=== PATIENT | female | born 1970 | race African-American/Black ===

== ENCOUNTER 2019-07-20 09:13 | Inpatient (IN) | payer OTHER ==
[~2019-07-20] VITALS: Ht 165.1 cm; Wt 99.8 kg
--- NOTE | 2019-07-20 | NUR ---
NURSE NOTES: PT COMPLAINED OF CHEST TIGHTNESS, NITROGLYCERIN 0.4MG Q5X3 PRN GIVEN. INFORMED DR. MACKAY. PT REPORTED RELIEF OF CHEST PAIN UPON REASSESSMENT. WILL CONTINUE TO MONITOR CLOSELY. Addendum: 07/21/19 at 0336 by Lenora Mayorga RN DISREGARD. WRONG TIME STAMP.
[2019-07-20 09:30] VITALS: BP 176/121
--- NOTE | 2019-07-20 09:30 | NUR ---
ED Nurse Note: Patient ambulated into the ER with a c/o SOB since last night. Pt stated she has a hx of asthma and she explained that she took an alkaseltzer last night. Placed on cardiac monitors. Patient is AAOx4, on room air. On Auscultation audible wheezing noted in bilateral lobes. O2 saturation 100% on room air. No accessory muscles being used noted.
--- NOTE | 2019-07-20 09:32 | NUR ---
ED Nurse Note: ERMD at bedside.
--- NOTE | 2019-07-20 09:35 | NUR ---
ED Nurse Note: Patient bp 176/121 with no reports of headache, dizziness, or n/v. Reported BP to ERMD.
[2019-07-20] MEDS ORDERED: Solu-MEDROL 125mg Inj IVP ONE (09:45)
[2019-07-20] MEDS: Ipratropium 0.02% Inh Soln 2.5ml UD HHN SCH ×2 (09:59→10:00)
[2019-07-20] MEDS: Albuterol ud Inhalation HHN SCH ×2 (09:59→10:00)
--- NOTE | 2019-07-20 10:05 | Emergency Room Report ---
History of Present Illness General Chief Complaint: Dyspnea/Respdistress Source: Patient Present Illness HPI 49-year-old female with history of asthma, hypertension and anxiety who presents with difficulty breathing for 1 day duration. She had a lot of difficulty bringing this morning. She did not take any medications today. She states her symptoms started after using [facility] yesterday for "generalized not feeling well". She received the pneumonia vaccination within the last 2 years. However she did not get her influenza vaccination this year. She denies any known fevers but notes subjective fever symptoms. She has an associated dry cough. She denies any chest pain. She has a history of hypertension where she takes her medications as needed for high blood pressure. She has not taken any medications for the last several weeks as her blood pressures been within normal limits. Patient has no prior smoking history. Allergies: Coded Allergies: ACETAMINOPHEN (Verified Allergy, Unknown, 07/20/19) HYDROCODONE (Verified Allergy, Unknown, 07/20/19) Patient History Last Menstrual Period: hysterectomy 08/2018 Now: No Nursing Documentation-[facility] Hx Asthma: Yes History Of Psychiatric Problem: Yes - Anxiety Review of Systems Constitutional: Reports: fever; Denies: chills Respiratory: Reports: cough, shortness of breath Cardiovascular: Denies: chest pain, palpitations Gastrointestinal: Denies: diarrhea, vomiting Genitourinary: Denies: hematuria, pain Musculoskeletal: Denies: joint swelling Skin: Denies: rash, lesions Neurological: Denies: headache, dizziness Physical Exam Vital Signs Date Time Temp Pulse Resp B/P (MAP) Pulse Ox O2 Delivery O2 Flow Rate FiO2 07/20/19 09:24 98.2 95 19 148/111 (123) 94 Room Air Sp02 EP Interpretation: reviewed General Appearance: well appearing, no apparent distress, non-toxic Head: normocephalic, atraumatic Eyes: bilateral eye normal inspection ENT: hearing grossly normal, EOM grossly intact, moist mucus membranes Neck: supple Respiratory: no accessory muscle use, respiratory distress - Mild, rhonchi, speaking full sentences, wheezing - Bilateral worse expiratory than inspiratory Cardiovascular #1: regular rate, rhythm, normal capillary refill Cardiovascular #2: 2+ radial (R), 2+ radial (L), 2+ femoral (R), 2+ femoral (L) , 2+ dorsalis pedis (R) Gastrointestinal: non tender, soft, no mass, non-distended Rectal: deferred Musculoskeletal: no lower extremity edema, other - Limited range of motion of right hip. Pain with movement of right hip. No deformity, no skin changes Neurologic: grossly normal Psychiatric: mood/affect normal Skin: warm/dry, normal turgor Medical Decision Making ER Course 49-year-old female with history of asthma, hypertension, anxiety. Complaining of shortness of breath associated with dry cough found to wheezing and mild respiratory distress. Also noted to have hypertension at this time Differential includes We will give steroids, nebulizer treatment. And placed on cardiac monitors as blood pressure is elevated and reevaluate Laboratory Tests Test 07/20/19 10:02 White Blood Count 8.6 K/UL (4.8-10.8) Red Blood Count 5.14 M/UL (4.20-5.40) Hemoglobin 14.4 G/DL (12.0-16.0) Hematocrit 44.1 % (37.0-47.0) Mean Corpuscular Volume 86 FL (80-99) Mean Corpuscular Hemoglobin 28.0 PG (27.0-31.0) Mean Corpuscular Hemoglobin Concent 32.6 G/DL (32.0-36.0) Red Cell Distribution Width 12.9 % (11.6-14.8) Platelet Count 189 K/UL (150-450) Mean Platelet Volume 7.2 FL (6.5-10.1) Neutrophils (%) (Auto) 65.8 % (45.0-75.0) Lymphocytes (%) (Auto) 17.9 % (20.0-45.0) L Monocytes (%) (Auto) 5.9 % (1.0-10.0) Eosinophils (%) (Auto) 9.2 % (0.0-3.0) H Basophils (%) (Auto) 1.3 % (0.0-2.0) Sodium Level 140 MMOL/L (136-145) Potassium Level 4.0 MMOL/L (3.5-5.1) Chloride Level 103 MMOL/L (98-107) Carbon Dioxide Level 28 MMOL/L (21-32) Anion Gap 9 mmol/L (5-15) Blood Urea Nitrogen 7 mg/dL (7-18) Creatinine 0.6 MG/DL (0.55-1.30) Estimate Glomerular Filtration Rate > 60 mL/min (>60) Glucose Level 95 MG/DL (74-106) Calcium Level 9.5 MG/DL (8.5-10.1) Total Bilirubin 0.5 MG/DL (0.2-1.0) Aspartate Amino Transferase (AST) 27 U/L (15-37) Alanine Aminotransferase (ALT) 24 U/L (12-78) Alkaline Phosphatase 84 U/L (46-116) Troponin I 0.000 ng/mL (0.000-0.056) Total Protein 7.7 G/DL (6.4-8.2) Albumin 3.7 G/DL (3.4-5.0) Globulin 4.0 g/dL Albumin/Globulin Ratio 0.9 (1.0-2.7) L Microbiology Date/Time Source Procedure Growth Status 07/20/19 10:02 Nasal Nares - Final Complete 07/20/19 10:02 Nasal Nares - Final Complete INFLUENZA A ANTIGEN Final INFLUENZAE A RESULT NEGATIVE CALLED TO AND READ BACK LUZ Willett RN INFLUENZA B ANTIGEN Final INFLUENZAE B RESULT NEGATIVE CALLED TO AND READ BACK LUZ Willett RN Lab Results Impression CBC within normal limits chemistry within normal limits- influenza testing negative EKG Diagnostic Results EKG Time: 10:21 EP Interpretation: Normal sinus rhythm mild left atrial enlargement Rate: normal - 88 Rhythm: NSR ST Segments: no acute changes Rhythm Strip Diag. Results Rhythm Strip Time: 11:00 EP Interpretation: yes Rate: 94 Rhythm: NSR Reevaluation Time: 12:45 Last Vital Signs Date Time Temp Pulse Resp B/P (MAP) Pulse Ox O2 Delivery O2 Flow Rate FiO2 07/20/19 09:24 98.2 95 19 148/111 (123) 94 Room Air Last Vital Signs Date Time Temp Pulse Resp B/P (MAP) Pulse Ox O2 Delivery O2 Flow Rate FiO2 07/20/19 12:02 88 18 100 Room Air 21 80 16 97 07/20/19 11:18 97.0 154/103 Reevaluation Impression Patient had multiple episodes of wheezing. Reports persistent chest tightness. Patient had a total of 5 nebulizers with improvement however still reported to be short of breath. Will admit for acute asthma exacerbation. Pending insurance approval [id number] accepted patient for asthma exacerbation. Patient agreeable with plan Disposition: ADMITTED INPATIENT Jese Gould M.D. Jul 20, 2019 10:05
[2019-07-20 10:46] LABS: BASOPHILS % (AUTO) 1.3 % (0.0-2.0); EOSINOPHILS % (AUTO) 9.2 % (0.0-3.0); HEMATOCRIT 44.1 % (37.0-47.0); HEMOGLOBIN 14.4 G/DL (12.0-16.0); LYMPHOCYTES % (AUTO) 17.9 % (20.0-45.0); MEAN CORPUSCULAR VOLUME 86 FL (80-99); MONOCYTES % (AUTO) 5.9 % (1.0-10.0); NEUTROPHILS % (AUTO) 65.8 % (45.0-75.0); PLATELET COUNT 189 K/UL (150-450); RED BLOOD COUNT 5.14 M/UL (4.20-5.40); RED CELL DISTRIBUTION WIDTH 12.9 % (11.6-14.8); WHITE BLOOD COUNT 8.6 K/UL (4.8-10.8)
[2019-07-20 11:01] LABS: ANION GAP 9 mmol/L (5-15); BLOOD UREA NITROGEN 7 mg/dL (7-18); CALCIUM 9.5 MG/DL (8.5-10.1); CARBON DIOXIDE 28 MMOL/L (21-32); CHLORIDE 103 MMOL/L (98-107); CREATININE 0.6 MG/DL (0.55-1.30); SODIUM 140 MMOL/L (136-145)
[2019-07-20 11:05] LABS: ALANINE AMINOTRANSFERASE 24 U/L (12-78); ALBUMIN 3.7 G/DL (3.4-5.0); ALBUMIN/GLOBULIN RATIO 0.9 (1.0-2.7); ALKALINE PHOSPHATASE 84 U/L (46-116); ASPARTATE AMINO TRANSFERASE 27 U/L (15-37); BILIRUBIN,TOTAL 0.5 MG/DL (0.2-1.0)
[2019-07-20 11:18] VITALS: BP 154/103
[2019-07-20] MEDS ORDERED: Acetylcysteine 20% Soln 4ml HHN ONE (11:45)
[2019-07-20] MEDS ORDERED: Albuterol ud Inhalation HHN ONE (11:45)
--- NOTE | 2019-07-20 11:57 | Diagnostic Imaging Report ---
EXAM: XR Chest, 2 Views CLINICAL HISTORY: SOB TECHNIQUE: Frontal and lateral views of the chest. COMPARISON: No relevant prior studies available. FINDINGS: Lungs: Unremarkable. No consolidation. Pleural space: Elevated left hemidiaphragm. No pleural effusion. No pneumothorax. Heart: Unremarkable. No cardiomegaly. Mediastinum: Unremarkable. Bones/joints: Unremarkable. IMPRESSION: No evidence of acute pulmonary disease.
--- NOTE | 2019-07-20 13:05 | NUR ---
ED Nurse Note: UA SENT TO LAB
[2019-07-20 13:38] VITALS: BP 156/125
[2019-07-20] MEDS ORDERED: cloNIDine 0.2mg Tab ORAL ONE (13:45)
[2019-07-20] MEDS ORDERED: UNOBMED (13:48)
--- NOTE | 2019-07-20 13:48 | NUR ---
ED Nurse Note: patient does not recall the name of the medication she takes.
--- NOTE | 2019-07-20 15:15 | NUR ---
ED Nurse Note: Called 4 east to give report to recieving nurse MANJIT Ricks for continuity of care.
--- NOTE | 2019-07-20 15:30 | NUR ---
ED Nurse Note: Transfered patient via wheelchair. Endorsed to MANJIT Ricks patient belonging list and reviewed patient belonging list with patient and Donovan RN. Pt aox4, and on room air, respirations are even and unlabored, no accessory muscles usage noted.
--- NOTE | 2019-07-20 15:35 | NUR ---
NURSE NOTES: Received report from emergency department RN Stephanie. Patient was brought to unit via wheelchair. Patient able to transfer to bed with minimal assistance. Alert and oriented x 4. Personal belongs list was reviewed with patient and ED nurse Stephanie. Patient's belongings inside bedside night stand. black cell phone with black chemical processing supervisor at bedside with patient. 20 g IV patent in right hand. No signs of edema, erythema, or infiltration. Auditory wheezing noted bilaterally upon inhale and exhale. oxygen at 98 percent on room air. Patient complains of chest pain 9 / 10 and tightness in chest with inhale and exhale. Heart rate of 114 BPM noted upon apical auscultation. blood pressure of 158/102. Patient has history of hypertension and takes medication. Patients skin is dry, in tact, no open areas. Doctor Dilan ly. Orientation given about hospital and unit. Educated patient on use of call light. All personal belongings and call light in reach. Bed in lowest position and locked. Will continue to monitor.
[2019-07-20 15:55] VITALS: BP 154/102
--- NOTE | 2019-07-20 16:00 | NUR ---
NURSE NOTES: RN contacted to Dr. Kong for admission orders but Dr. Kong said to call Dr. Cardoza. Rn paged Dr. Cardoza.
--- NOTE | 2019-07-20 17:25 | NUR ---
NURSE NOTES: Dr. Cardoza put admission orders but no pain meds. RN paged Dr. Cardoza.
[2019-07-20] MEDS ORDERED: Promethazine/Codeine 5ml UD ORAL PRN (17:30)
[2019-07-20] MEDS ORDERED: LORazepam Inj 2mg/ml 1ml IV PRN (17:30)
[2019-07-20] MEDS: Solu-MEDROL 125mg Inj IV SCH ×2 (18:17→23:34)
[2019-07-20] MEDS: dilTIAZem HCl CD 120mg cap ORAL SCH (18:26)
--- NOTE | 2019-07-20 18:27 | NUR ---
NURSE NOTES: There is no EKG result from ER, Patient was seen by Dr. John who covers for Dr. Rogel. She ordered EKG. RT dept. was notified.
--- NOTE | 2019-07-20 19:32 | NUR ---
HAND-OFF: Report given to Lenora and endorsed to change her room if possible per patient request and follow up with doctor for pain meds.
[2019-07-20 20:00] VITALS: BP 149/110
--- NOTE | 2019-07-20 20:13 | NUR ---
NURSE NOTES: RECEIVED PT FROM MANJIT BRUNNER. PT IS AWAKE, AAOX4, ON ROOM AIR, C/O GENERALIZED PAIN. NO ACUTE RESPIRATORY DISTRESS NOTED. INFORMED FOR PAIN MEDICATION AND RECEIVED ORDERS. IV ON RIGHT HAND 20G IS INTACT AND PATENT. BED IS LOCKED AND LOW, BED ALARMS ACTIVE, SIDE RAILS UP X2 AND CALL LIGHT IS WITHIN REACH. WILL CONTINUE TO MONITOR.
[2019-07-20] MEDS: Theophylline ER 100mg ORAL SCH (21:23)
[2019-07-20] MEDS: Zoysn 3.37gm in NS 100ML IVPB SCH (21:24)
[2019-07-20] MEDS: Heparin 5000 units/ml inj SUBQ SCH (21:26)
[2019-07-20] MEDS ORDERED: Piperacillin/Tazobactam 2.25 GM in D5W 55 ML IV SCH (22:00)
[2019-07-20] MEDS: Albuterol/Ipratropium 3ml neb HHN PRN (22:31)
[2019-07-20] MEDS: Nitroglycerin Subl 0.4mg tab SL PRN ×3 (23:35→23:52)
[2019-07-21] VITALS (8 sets, daily range): BP systolic 133–155; BP diastolic 88–107
--- NOTE | 2019-07-21 | NUR ---
NURSE NOTES: PT COMPLAINED OF CHEST TIGHTNESS, NITROGLYCERIN 0.4MG Q5X3 PRN GIVEN. INFORMED DR. MACKAY. PT REPORTED RELIEF OF CHEST PAIN UPON REASSESSMENT. WILL CONTINUE TO MONITOR CLOSELY.
--- NOTE | 2019-07-21 03:00 | Consultation ---
DATE OF CONSULTATION: 07/20/2019 CARDIOLOGY CONSULTATION This consult is done as a coverage for Dr. Gustavo Rogel. CONSULTING PHYSICIAN: Tamia John M.D. REFERRING PHYSICIAN: Kofi Oliver M.D. HISTORY OF PRESENT ILLNESS: History has taken from the patient. The patient is a very pleasant 49-year-old female who came with COPD exacerbation. The patient has a history of asthma and since yesterday, she started feeling not very good, but she wanted to avoid coming to the hospital, so she took her inhalers. Unfortunately, it creates with worse shortness of breath. She denies any chest pain, orthopnea, or syncope. She has a history of hypertension. She does not remember her medications for blood pressure, but upon prompting, she remembers Lotensin and probably hydrochlorothiazide. PAST SURGICAL HISTORY: Remarkable for cholecystectomy, hysterectomy, and three back surgeries. HABITS: She denies smoking cigarettes. She only smokes marijuana occasionally. She denies any illicit drug abuse. ALLERGIES: She is allergic to acetaminophen and hydrocodone. MEDICATIONS: The rest of her medications, which she is taking at home were reviewed and reconciled. Her coronary risk factors include hypertension and she is not sure about her hyperlipidemia, whether she has elevated lipids or not. REVIEW OF SYSTEMS: From cardiac standpoint is negative and she denies any cardiac history and she did not take any of her medications today. PHYSICAL EXAMINATION: VITAL SIGNS: Blood pressure is 162/112; heart rate is from 100 to 90; on room air, oxygen saturation is 100%; and she is afebrile. HEENT: PERRLA. EOMI. NECK: Supple. Jugular venous pressure is not elevated. She has normal carotid upstroke. There is no thyromegaly. LUNGS: She has wheezing bilaterally with some prolonged expiration, especially posteriorly. HEART: Regular with loud A2. BREASTS: No masses. ABDOMEN: Soft. No hepatosplenomegaly. There is well-healed abdominal scars post surgery. EXTREMITIES: Lower extremities, distal pulses palpable. There is no edema. NEUROLOGICAL: She appears to be intact. LABORATORY AND DIAGNOSTIC DATA: The EKG is being in process. Chest x-ray was unremarkable. Her laboratory data also was reviewed and was unremarkable. IMPRESSION AND RECOMMENDATION: The patient is hypertensive. We are going to try to restart her on her home medications plus we are going to give her something p.r.n. I am going to follow her EKG and I think that she does not need any additional cardiac workup at this point. Thank you very much for your consultation. Tamia John M.D. DR: NINA JOB#: [id number] CC: [place]
[2019-07-21] MEDS: Albuterol/Ipratropium 3ml neb HHN PRN ×5 (03:32→21:06)
[2019-07-21] MEDS: Zoysn 3.37gm in NS 100ML IVPB SCH ×3 (06:41→21:28)
[2019-07-21] MEDS: Solu-MEDROL 125mg Inj IV SCH ×4 (06:42→23:40)
--- NOTE | 2019-07-21 07:30 | NUR ---
HAND-OFF: Report given to MANJIT BRUNNER.
--- NOTE | 2019-07-21 07:30 | NUR ---
NURSE NOTES: Received report from Lenora RN. Patient awake alert and oriented x 4. Sitting in Fowlers position in bed eating breakfast. Wheezing noted bilaterally in lungs. Patient denies chest pain at this time,and states that chest tightness is "better". Mild headache at this time, but no other complaints. No pain medication requested at this time. Educated patient the need for a sputum sample if able to. Bed in lowest position, locked, and alarmed. Call light, bedside table, and personal belongings within reach. Will continue to follow plan of care.
[2019-07-21] MEDS: Theophylline ER 100mg ORAL SCH ×2 (08:20→21:23)
[2019-07-21] MEDS: dilTIAZem HCl CD 120mg cap ORAL SCH (08:21)
[2019-07-21] MEDS: Heparin 5000 units/ml inj SUBQ SCH ×2 (08:25→21:28)
[2019-07-21] MEDS ORDERED: Acetylcysteine 20% Soln 4ml HHN PRN (08:30)
[2019-07-21] MEDS: Acetylcysteine 20% Soln 4ml HHN PRN ×3 (10:50→21:06)
--- NOTE | 2019-07-21 15:15 | History and Physical Report ---
DATE OF ADMISSION: 07/20/2019 TIME SEEN: 8 a.m. CONSULTANTS: 1. Nicolas Cardoza M.D. 2. Gustavo Rogel M.D. 3. Alden Perrin M.D. CHIEF COMPLAINT: 1. Shortness of breath. 2. Asthma exacerbation. 3. Hypertensive urgency. 4. Renal failure. BRIEF HISTORY: This is a 49-year-old female, who lives at home, experienced one day of increased shortness of breath, started wheezing, came to [place] last night, diagnosed with asthma exacerbation, hypertensive urgency, renal failure, and admitted to medical floor for further treatment. Currently, calm in bed, slight wheezing, and slight short of breath. No complaint otherwise. REVIEW OF SYSTEMS: No chest pain. Slight short of breath. No nausea, vomiting, or diarrhea. PAST MEDICAL HISTORY: Includes hypertension, renal failure, history of DVT, asthma, and anxiety. PAST SURGICAL HISTORY: Back surgery, gallbladder, hysterectomy, and right Achilles tendon. MEDICATIONS: Include Mucomyst, Zosyn, captopril, theophylline, ibuprofen, benazepril, diltiazem, methylprednisolone, lorazepam, and Zofran. . ALLERGIES: Tylenol and Vicodin. SOCIAL HISTORY: No smoking. No alcohol. Positive marijuana use. PHYSICAL EXAMINATION: GENERAL: Calm in bed, oriented x3, slight short of breath. VITAL SIGNS: Temperature 97 degrees, pulse 91, respirations 16, and blood pressure 152/106. CARDIOVASCULAR: No murmurs. LUNGS: Poor exchange, wheezing bilaterally. ABDOMEN: Bowel sounds positive. Nontender. Nondistended. EXTREMITIES: Show no cyanosis, clubbing, or edema. NEUROLOGIC: The patient moves all extremities, slightly weak. LABORATORY AND DIAGNOSTIC DATA: Laboratories show CBC is normal. BMP show troponin 0.00, otherwise normal. Urinalysis, urine HCG is negative. Chemistry, BUN and creatinine is fine. PLAN: 1. O2 pulmonary treatment. 2. Blood pressure control. 3. Nephrology followup. 4. Dietary followup. 5. PT and dietary evaluation. 6. CBC and BMP in the morning. Ramon Kong D.O. DR: Marce JOB#: [id number] CC:
--- NOTE | 2019-07-21 18:04 | Cardiology Progress Note ---
Assessment/Plan Assessment/Plan her BP is better controlled reviewed her ECG, unremarkable Subjective Subjective The patient feels better, has cough, but less wheezing Objective Last 24 Hour Vital Signs Date Time Temp Pulse Resp B/P (MAP) Pulse Ox O2 Delivery O2 Flow Rate FiO2 07/21/19 16:00 97.1 91 19 155/97 (116) 97 07/21/19 14:37 78 18 100 Room Air 21 74 18 97 07/21/19 12:00 98.3 99 19 146/97 (113) 95 07/21/19 10:52 84 18 100 Room Air 21 80 18 97 07/21/19 09:00 Room Air 96.0 07/21/19 08:21 91 152/106 07/21/19 08:21 152/106 07/21/19 08:00 98.1 91 18 152/106 (121) 93 07/21/19 07:54 82 18 100 Room Air 21 77 16 96 07/21/19 04:00 97.0 83 22 140/88 (105) 100 07/21/19 03:43 84 18 100 Room Air 21 79 18 99 07/21/19 01:47 139/97 (111) 07/21/19 00:00 97.0 91 20 144/107 (119) 96 07/20/19 23:52 149/110 07/20/19 23:43 149/110 07/20/19 23:35 149/110 07/20/19 22:35 85 18 100 Room Air 21 81 18 98 07/20/19 21:00 Room Air 96.0 07/20/19 20:00 97.3 97 20 149/110 (123) 100 07/20/19 18:26 93 162/112 07/20/19 18:25 162/112 General Appearance: no apparent distress EENT: PERRL/EOMI Neck: no JVD Rhythm: NSR Cardiovascular: normal rate Respiratory/Chest: expiratory wheezing Abdomen: soft Extremities: moderate edema Intake and Output 07/20/19 07/21/19 19:00 07:00 Intake Total 120 ml 110.0 ml Balance 120 ml 110.0 ml Intake Oral 120 ml IV Total 110.0 ml # Voids 1 Microbiology Date/Time Source Procedure Growth Status 07/20/19 10:02 Nasal Nares - Final Complete 07/20/19 10:02 Nasal Nares - Final Complete Tamia John MD Jul 21, 2019 18:04
--- NOTE | 2019-07-21 19:20 | NUR ---
HAND-OFF: Report given to Shayne SARAVIA.
--- NOTE | 2019-07-21 19:23 | NUR ---
NURSE NOTES: Received patient in bed. A/O x4. Patient denies pain att his time. On room air. No respiratory distress noted. IV site in the Left hand noted with dressing intact and no redness or swelling. Bed at the lowest position. Call light within reach.
--- NOTE | 2019-07-21 21:31 | Pulmonology Progress Note ---
Assessment/Plan Problems: (1) athma exacerbation (2) HTN (hypertension) Assessment/Plan respiratory treatment check sputum check labs steroids Subjective Interval Events: less short of breath Allergies: Coded Allergies: ACETAMINOPHEN (Verified Allergy, Unknown, 07/20/19) HYDROCODONE (Verified Allergy, Unknown, 07/20/19) Objective Last 24 Hour Vital Signs Date Time Temp Pulse Resp B/P (MAP) Pulse Ox O2 Delivery O2 Flow Rate FiO2 07/21/19 21:06 76 18 100 Room Air 21 71 18 98 07/21/19 16:00 97.1 91 19 155/97 (116) 97 07/21/19 14:37 78 18 100 Room Air 21 74 18 97 07/21/19 12:00 98.3 99 19 146/97 (113) 95 07/21/19 10:52 84 18 100 Room Air 21 80 18 97 07/21/19 09:00 Room Air 96.0 07/21/19 08:21 91 152/106 07/21/19 08:21 152/106 07/21/19 08:00 98.1 91 18 152/106 (121) 93 07/21/19 07:54 82 18 100 Room Air 21 77 16 96 07/21/19 04:00 97.0 83 22 140/88 (105) 100 07/21/19 03:43 84 18 100 Room Air 21 79 18 99 07/21/19 01:47 139/97 (111) 07/21/19 00:00 97.0 91 20 144/107 (119) 96 07/20/19 23:52 149/110 07/20/19 23:43 149/110 07/20/19 23:35 149/110 07/20/19 22:35 85 18 100 Room Air 21 81 18 98 Intake and Output 07/20/19 07/21/19 19:00 07:00 Intake Total 120 ml 110.0 ml Balance 120 ml 110.0 ml Intake Oral 120 ml IV Total 110.0 ml # Voids 1 General Appearance: WD/WN HEENT: normocephalic, anicteric Respiratory/Chest: chest wall non-tender, lungs clear Breasts: no masses Cardiovascular: normal rate, regularly irregular Abdomen: normal bowel sounds, no organomegaly, non distended, no scars Extremities: no cyanosis Skin: no rash, no lesions Microbiology Date/Time Source Procedure Growth Status 07/20/19 10:02 Nasal Nares - Final Complete 07/20/19 10:02 Nasal Nares - Final Complete Current Medications Medications (Trade) Dose Ordered Sig/Sylvie Route PRN Reason Start Time Stop Time Status Last Admin Dose Admin Acetylcysteine (Mucomyst) 200 mg Q6H PRN HHN For Cough 07/21/19 08:45 08/20/19 08:29 07/21/19 21:06 Albuterol/ Ipratropium (Albuterol/ Ipratropium) 3 ml Q4H PRN HHN dyspnea 07/20/19 17:30 07/25/19 17:29 07/21/19 21:06 Benazepril HCl (Lotensin) 40 mg DAILY ORAL 07/20/19 18:15 08/19/19 18:14 07/21/19 08:21 Captopril (Capoten) 25 mg Q8H PRN ORAL SBP above 150 07/20/19 22:00 08/19/19 21:59 Dextrose (Dextrose 50%) 25 ml Q30M PRN IV Hypoglycemia 07/20/19 17:30 08/19/19 17:29 Dextrose (Dextrose 50%) 50 ml Q30M PRN IV Hypoglycemia 07/20/19 17:30 08/19/19 17:29 Diltiazem HCl (Cardizem CD) 120 mg DAILY ORAL 07/20/19 18:15 08/19/19 18:14 07/21/19 08:21 Heparin Sodium (Porcine) (Heparin 5000 units/ml) 5,000 units EVERY 12 HOURS SUBQ 07/20/19 21:00 08/19/19 20:59 07/21/19 21:28 Ibuprofen (Advil) 400 mg Q6H PRN ORAL For Pain 07/20/19 20:15 08/19/19 20:14 Lorazepam (Ativan 2mg/ml 1ml) 0.5 mg Q4H PRN IV For Anxiety 07/20/19 17:30 07/27/19 17:29 Methylprednisolone Sodium Succinate (Solu-MEDROL) 60 mg EVERY 6 HOURS IV 07/20/19 18:00 08/19/19 17:59 07/21/19 17:42 Nitroglycerin (Ntg) 0.4 mg Q5M X 3 DOSES PRN SL Prn Chest Pain 07/20/19 17:30 08/19/19 17:29 07/20/19 23:52 Ondansetron HCl (Zofran) 4 mg Q6H PRN IVP Nausea & Vomiting 07/20/19 17:30 08/19/19 17:29 Piperacillin Sod/ Tazobactam Sod 3.375 gm/Sodium Chloride 110 ml @ 27.5 mls/hr EVERY 8 HOURS IVPB 07/20/19 22:00 07/25/19 21:59 07/21/19 21:28 Promethazine HCl/ Codeine (Phenergan with Codeine) 5 ml Q6H PRN ORAL cough 07/20/19 17:30 08/19/19 17:29 Temazepam (Restoril) 15 mg HSPRN PRN ORAL Insomnia 07/20/19 17:30 07/27/19 17:29 Theophylline (Bam-Dur) 100 mg EVERY 12 HOURS ORAL 07/20/19 21:00 08/19/19 20:59 07/21/19 21:23 Nicolas Cardoza MD Jul 21, 2019 21:31
[2019-07-22] VITALS: BP 165/97
[2019-07-22] MEDS: Captopril 25mg tab ORAL PRN ×2 (00:20→09:34)
[2019-07-22] MEDS: Albuterol/Ipratropium 3ml neb HHN PRN ×4 (01:30→13:53)
[2019-07-22] MEDS: Acetylcysteine 20% Soln 4ml HHN PRN ×3 (02:39→13:53)
[2019-07-22 04:00] VITALS: BP 131/88
[2019-07-22] MEDS: Solu-MEDROL 125mg Inj IV SCH ×4 (05:23→23:29)
[2019-07-22] MEDS: Zoysn 3.37gm in NS 100ML IVPB SCH (05:24)
[2019-07-22 06:35] LABS: MEAN CORPUSCULAR VOLUME 86 FL (80-99); PLATELET COUNT 207 K/UL (150-450); RED BLOOD COUNT 5.02 M/UL (4.20-5.40); RED CELL DISTRIBUTION WIDTH 13.5 % (11.6-14.8)
[2019-07-22 07:07] LABS: ANION GAP 11 mmol/L (5-15); BLOOD UREA NITROGEN 15 mg/dL (7-18); CALCIUM 8.7 MG/DL (8.5-10.1); CARBON DIOXIDE 25 MMOL/L (21-32); CHLORIDE 104 MMOL/L (98-107); CREATININE 1.1 MG/DL (0.55-1.30); POTASSIUM 3.7 MMOL/L (3.5-5.1); SODIUM 140 MMOL/L (136-145)
--- NOTE | 2019-07-22 07:19 | NUR ---
HAND-OFF: Report given to Bibi SARAVIA.
--- NOTE | 2019-07-22 07:30 | NUR ---
NURSE NOTES: Received pt awake and alert on the bed is eating breakfast. pt is in RA, no SOB or acute respiratory distress noted. pt has intact iv access LFA 22G SL and RH 24G SL. All needs attended, bed is locked and is in the lowest position, call light within easy reach. will continue to monitor.
[2019-07-22 07:56] LABS: WHITE BLOOD COUNT 23.5 K/UL (4.8-10.8)
[2019-07-22 08:00] VITALS: BP 160/97
--- NOTE | 2019-07-22 08:08 | NUR ---
NURSE NOTES: Dr MACKAY notified regarding WBC 23.5, he called back and stated Dr POON and Dr BERNARD notified by Dr MACKAY, Dr POON called back and stated he will F/U, no new order to RN.
--- NOTE | 2019-07-22 09:10 | General Progress Note ---
Assessment/Plan Problem List: (1) HTN (hypertension) ICD Codes: I10 - Essential (primary) hypertension SNOMED: 09233014 (2) Dyspnea ICD Codes: R06.00 - Dyspnea, unspecified SNOMED: 581911388 (3) athma exacerbation Status: unchanged Assessment/Plan: oe pulm tx bp control cbc bmp am Subjective Constitutional: Reports: weakness Respiratory: Reports: shortness of breath Allergies: Coded Allergies: ACETAMINOPHEN (Verified Allergy, Unknown, 07/20/19) HYDROCODONE (Verified Allergy, Unknown, 07/20/19) All Systems: reviewed and negative except above Subjective sleepy calm Objective Last 24 Hour Vital Signs Date Time Temp Pulse Resp B/P (MAP) Pulse Ox O2 Delivery O2 Flow Rate FiO2 07/22/19 04:00 97.4 92 19 131/88 (102) 97 07/22/19 02:40 79 18 100 Room Air 21 77 18 98 07/22/19 00:20 165/97 07/22/19 00:00 96.8 69 18 165/97 (119) 99 07/21/19 21:06 76 18 100 Room Air 21 71 18 98 07/21/19 21:00 Room Air 07/21/19 20:00 98.0 75 19 133/90 (104) 98 07/21/19 16:00 97.1 91 19 155/97 (116) 97 07/21/19 14:37 78 18 100 Room Air 21 74 18 97 07/21/19 12:00 98.3 99 19 146/97 (113) 95 07/21/19 10:52 84 18 100 Room Air 21 80 18 97 Intake and Output 07/21/19 07/22/19 19:00 07:00 Intake Total 1720.0 ml 1850.0 ml Balance 1720.0 ml 1850.0 ml Intake Oral 240 ml IV Total 220.0 ml 110.0 ml Other 1500 ml 1500 ml # Voids 2 Laboratory Tests 07/22/19 05:50: White Blood Count 23.5*H, Red Blood Count 5.02, Hemoglobin 14.0, Hematocrit 43.0 , Mean Corpuscular Volume 86, Mean Corpuscular Hemoglobin 27.9, Mean Corpuscular Hemoglobin Concent 32.6, Red Cell Distribution Width 13.5, Platelet Count 207, Mean Platelet Volume 6.4L, Neutrophils (%) (Auto) , Lymphocytes (%) ( Auto) , Monocytes (%) (Auto) , Eosinophils (%) (Auto) , Basophils (%) (Auto) , Neutrophils % (Manual) [Pending], Lymphocytes % (Manual) [Pending], Platelet Estimate [Pending], Platelet Morphology [Pending], Sodium Level 140, Potassium Level 3.7, Chloride Level 104, Carbon Dioxide Level 25, Anion Gap 11, Blood Urea Nitrogen 15, Creatinine 1.1, Estimat Glomerular Filtration Rate > 60, Glucose Level 200H, Calcium Level 8.7 Height (Feet): 5 Height (Inches): 5.00 Weight (Pounds): 220 General Appearance: alert EENT: normal ENT inspection Neck: normal alignment Cardiovascular: normal peripheral pulses, normal rate, regular rhythm Respiratory/Chest: expiratory wheezing, inspiratory wheezing Abdomen: normal bowel sounds, non tender, soft Extremities: normal inspection Edema: no edema noted Arm (L), no edema noted Arm (R), no edema noted Leg (L), no edema noted Leg (R), no edema noted Pedal (L), no edema noted Pedal (R), no edema noted Generalized Neurologic: responsive, motor weakness Skin: normal pigmentation, warm/dry Ramon Kong DO Jul 22, 2019 09:10
[2019-07-22] MEDS: Theophylline ER 100mg ORAL SCH ×2 (09:34→20:52)
[2019-07-22] MEDS: dilTIAZem HCl CD 120mg cap ORAL SCH (09:34)
[2019-07-22] MEDS: Heparin 5000 units/ml inj SUBQ SCH ×2 (09:36→20:54)
[2019-07-22 12:00] VITALS: BP 139/90
--- NOTE | 2019-07-22 12:47 | Consultation ---
History of Present Illness General Date patient seen: Jul 22, 2019 Chief Complaint: Dyspnea/Respdistress Present Illness HPI 49 y/o F with hx of COPD/asthma, HTN, DVT, s/p cholecystectomy, anxiety disorder , s/p hysterectomy 08/2018, back surgeries x3 presented to ED on 07/20 with worsening SOB and dry cough. Upon admission she was found to have hypertensive urgency and renal failure Denied chest pain, orthopnea, Allergies: Coded Allergies: ACETAMINOPHEN (Verified Allergy, Unknown, 07/20/19) HYDROCODONE (Verified Allergy, Unknown, 07/20/19) Medication History Miscellaneous Medications Unable to Obtain Medications (Unable To Obtain Meds), (Reported) Patient History Healthcare decision maker Resuscitation status Full Code Advanced Directive on File Patient History Narrative Pmhx: as above Shx: She denies smoking cigarettes. She only smokes marijuana occasionally. She denies any illicit drug abuse. Fhx: non contributory Review of Systems All Other Systems: negative except mentioned in HPI Physical Exam Physical Exam Narrative GENERAL: Calm in bed, oriented x3, slight short of breath. CARDIOVASCULAR: No murmurs. LUNGS: Poor exchange, wheezing bilaterally. ABDOMEN: Bowel sounds positive. Nontender. Nondistended. EXTREMITIES: Show no cyanosis, clubbing, or edema. NEUROLOGIC: The patient moves all extremities, slightly weak. Last 24 Hour Vital Signs Date Time Temp Pulse Resp B/P (MAP) Pulse Ox O2 Delivery O2 Flow Rate FiO2 07/22/19 12:00 97.8 77 16 139/90 (106) 98 07/22/19 09:34 160/97 07/22/19 09:34 78 160/97 07/22/19 09:34 160/97 07/22/19 09:05 78 18 100 Room Air 21 74 18 97 07/22/19 09:00 Room Air 07/22/19 08:00 97.8 82 17 160/97 (118) 100 07/22/19 04:00 97.4 92 19 131/88 (102) 97 07/22/19 02:40 79 18 100 Room Air 21 77 18 98 07/22/19 00:20 165/97 07/22/19 00:00 96.8 69 18 165/97 (119) 99 07/21/19 21:06 76 18 100 Room Air 21 71 18 98 07/21/19 21:00 Room Air 07/21/19 20:00 98.0 75 19 133/90 (104) 98 07/21/19 16:00 97.1 91 19 155/97 (116) 97 07/21/19 14:37 78 18 100 Room Air 21 74 18 97 Intake and Output 07/21/19 07/22/19 19:00 07:00 Intake Total 1720.0 ml 1850.0 ml Balance 1720.0 ml 1850.0 ml Intake Oral 240 ml IV Total 220.0 ml 110.0 ml Other 1500 ml 1500 ml # Voids 2 Laboratory Tests Test 07/22/19 05:50 White Blood Count 23.5 K/UL (4.8-10.8) *H Red Blood Count 5.02 M/UL (4.20-5.40) Hemoglobin 14.0 G/DL (12.0-16.0) Hematocrit 43.0 % (37.0-47.0) Mean Corpuscular Volume 86 FL (80-99) Mean Corpuscular Hemoglobin 27.9 PG (27.0-31.0) Mean Corpuscular Hemoglobin Concent 32.6 G/DL (32.0-36.0) Red Cell Distribution Width 13.5 % (11.6-14.8) Platelet Count 207 K/UL (150-450) Mean Platelet Volume 6.4 FL (6.5-10.1) L Neutrophils (%) (Auto) % (45.0-75.0) Lymphocytes (%) (Auto) % (20.0-45.0) Monocytes (%) (Auto) % (1.0-10.0) Eosinophils (%) (Auto) % (0.0-3.0) Basophils (%) (Auto) % (0.0-2.0) Differential Total Cells Counted 100 Neutrophils % (Manual) 91 % (45-75) H Lymphocytes % (Manual) 7 % (20-45) L Monocytes % (Manual) 2 % (1-10) Eosinophils % (Manual) 0 % (0-3) Basophils % (Manual) 0 % (0-2) Band Neutrophils 0 % (0-8) Platelet Estimate Adequate Platelet Morphology Normal Sodium Level 140 MMOL/L (136-145) Potassium Level 3.7 MMOL/L (3.5-5.1) Chloride Level 104 MMOL/L (98-107) Carbon Dioxide Level 25 MMOL/L (21-32) Anion Gap 11 mmol/L (5-15) Blood Urea Nitrogen 15 mg/dL (7-18) Creatinine 1.1 MG/DL (0.55-1.30) Estimat Glomerular Filtration Rate > 60 mL/min (>60) Glucose Level 200 MG/DL (74-106) H Calcium Level 8.7 MG/DL (8.5-10.1) Height (Feet): 5 Height (Inches): 5.00 Weight (Pounds): 220 Medications Current Medications Medications (Trade) Dose Ordered Sig/Sylvie Route PRN Reason Start Time Stop Time Status Last Admin Dose Admin Acetylcysteine (Mucomyst) 200 mg Q6H PRN HHN For Cough 07/21/19 08:45 08/20/19 08:29 07/22/19 09:05 Albuterol/ Ipratropium (Albuterol/ Ipratropium) 3 ml Q4H PRN HHN dyspnea 07/20/19 17:30 07/25/19 17:29 07/22/19 09:05 Benazepril HCl (Lotensin) 40 mg DAILY ORAL 07/20/19 18:15 08/19/19 18:14 07/22/19 09:34 Captopril (Capoten) 25 mg Q8H PRN ORAL SBP above 150 07/20/19 22:00 08/19/19 21:59 07/22/19 09:34 Dextrose (Dextrose 50%) 25 ml Q30M PRN IV Hypoglycemia 07/20/19 17:30 08/19/19 17:29 Dextrose (Dextrose 50%) 50 ml Q30M PRN IV Hypoglycemia 07/20/19 17:30 08/19/19 17:29 Diltiazem HCl (Cardizem CD) 120 mg DAILY ORAL 07/20/19 18:15 08/19/19 18:14 07/22/19 09:34 Heparin Sodium (Porcine) (Heparin 5000 units/ml) 5,000 units EVERY 12 HOURS SUBQ 07/20/19 21:00 08/19/19 20:59 07/22/19 09:36 Ibuprofen (Advil) 400 mg Q6H PRN ORAL For Pain 07/20/19 20:15 08/19/19 20:14 07/22/19 05:28 Lorazepam (Ativan 2mg/ml 1ml) 0.5 mg Q4H PRN IV For Anxiety 07/20/19 17:30 07/27/19 17:29 Methylprednisolone Sodium Succinate (Solu-MEDROL) 60 mg EVERY 6 HOURS IV 07/20/19 18:00 08/19/19 17:59 07/22/19 12:06 Nitroglycerin (Ntg) 0.4 mg Q5M X 3 DOSES PRN SL Prn Chest Pain 07/20/19 17:30 08/19/19 17:29 07/20/19 23:52 Ondansetron HCl (Zofran) 4 mg Q6H PRN IVP Nausea & Vomiting 07/20/19 17:30 08/19/19 17:29 Piperacillin Sod/ Tazobactam Sod 3.375 gm/Sodium Chloride 110 ml @ 27.5 mls/hr EVERY 8 HOURS IVPB 07/20/19 22:00 07/25/19 21:59 07/22/19 05:24 Promethazine HCl/ Codeine (Phenergan with Codeine) 5 ml Q6H PRN ORAL cough 07/20/19 17:30 08/19/19 17:29 Temazepam (Restoril) 15 mg HSPRN PRN ORAL Insomnia 07/20/19 17:30 07/27/19 17:29 07/22/19 00:20 Theophylline (Bam-Dur) 100 mg EVERY 12 HOURS ORAL 07/20/19 21:00 08/19/19 20:59 07/22/19 09:34 Assessment/Plan Assessment/Plan: Abx: Zosyn 07/20- Assessment: COPD/asthma exacerbation -CXR: No evidence of acute pulmonary disease. -influenza sc neg Afebrile Leukocytosis (not present on admission, now on high dose steroids) HTN DVT s/p cholecystectomy anxiety disorder s/p hysterectomy 08/2018 back surgeries x3 Plan: -Switch Zosyn #2 to PO Azithromycin for COPD exacerbation -f/u cx -Monitor CBC/CMP, temperatures Thank you for this consultation. Will continue to follow along with you. Discussed with Evi Carvalho M.D. Jul 22, 2019 12:47
[2019-07-22] MEDS ORDERED: Azithromycin 250mg tab ORAL SCH (13:00)
--- NOTE | 2019-07-22 15:17 | NUR ---
*-* INSURANCE *-* ALL AVAILABLE CLINICALS HAVE BEEN FAXED TO: [facility] REF# [id number] #[phone] FAX#[phone]
[2019-07-22 16:00] VITALS: BP 135/83
--- NOTE | 2019-07-22 19:18 | Cardiology Progress Note ---
Assessment/Plan Assessment/Plan htn copd exacerbation dvty hs increase cardizem cd to 180 on max acei dose increased wbc probably due to steriods Objective Last 24 Hour Vital Signs Date Time Temp Pulse Resp B/P (MAP) Pulse Ox O2 Delivery O2 Flow Rate FiO2 07/22/19 16:00 98.0 70 17 135/83 (100) 99 07/22/19 14:31 97.8 07/22/19 13:50 78 18 100 Room Air 21 76 18 97 07/22/19 12:00 97.8 77 16 139/90 (106) 98 07/22/19 09:34 160/97 07/22/19 09:34 78 160/97 07/22/19 09:34 160/97 07/22/19 09:05 78 18 100 Room Air 21 74 18 97 07/22/19 09:00 Room Air 07/22/19 08:00 97.8 82 17 160/97 (118) 100 07/22/19 04:00 97.4 92 19 131/88 (102) 97 07/22/19 02:40 79 18 100 Room Air 21 77 18 98 07/22/19 00:20 165/97 07/22/19 00:00 96.8 69 18 165/97 (119) 99 07/21/19 21:06 76 18 100 Room Air 21 71 18 98 07/21/19 21:00 Room Air 07/21/19 20:00 98.0 75 19 133/90 (104) 98 Intake and Output 07/21/19 07/22/19 19:00 07:00 Intake Total 1720.0 ml 1850.0 ml Balance 1720.0 ml 1850.0 ml Intake Oral 240 ml IV Total 220.0 ml 110.0 ml Other 1500 ml 1500 ml # Voids 2 Laboratory Tests Test 07/22/19 05:50 White Blood Count 23.5 K/UL (4.8-10.8) *H Red Blood Count 5.02 M/UL (4.20-5.40) Hemoglobin 14.0 G/DL (12.0-16.0) Hematocrit 43.0 % (37.0-47.0) Mean Corpuscular Volume 86 FL (80-99) Mean Corpuscular Hemoglobin 27.9 PG (27.0-31.0) Mean Corpuscular Hemoglobin Concent 32.6 G/DL (32.0-36.0) Red Cell Distribution Width 13.5 % (11.6-14.8) Platelet Count 207 K/UL (150-450) Mean Platelet Volume 6.4 FL (6.5-10.1) L Neutrophils (%) (Auto) % (45.0-75.0) Lymphocytes (%) (Auto) % (20.0-45.0) Monocytes (%) (Auto) % (1.0-10.0) Eosinophils (%) (Auto) % (0.0-3.0) Basophils (%) (Auto) % (0.0-2.0) Differential Total Cells Counted 100 Neutrophils % (Manual) 91 % (45-75) H Lymphocytes % (Manual) 7 % (20-45) L Monocytes % (Manual) 2 % (1-10) Eosinophils % (Manual) 0 % (0-3) Basophils % (Manual) 0 % (0-2) Band Neutrophils 0 % (0-8) Platelet Estimate Adequate Platelet Morphology Normal Sodium Level 140 MMOL/L (136-145) Potassium Level 3.7 MMOL/L (3.5-5.1) Chloride Level 104 MMOL/L (98-107) Carbon Dioxide Level 25 MMOL/L (21-32) Anion Gap 11 mmol/L (5-15) Blood Urea Nitrogen 15 mg/dL (7-18) Creatinine 1.1 MG/DL (0.55-1.30) Estimat Glomerular Filtration Rate > 60 mL/min (>60) Glucose Level 200 MG/DL (74-106) H Calcium Level 8.7 MG/DL (8.5-10.1) Microbiology Date/Time Source Procedure Growth Status 07/20/19 10:02 Nasal Nares - Final Complete 07/20/19 10:02 Nasal Nares - Final Complete Gustavo Rogel MD Jul 22, 2019 19:18
--- NOTE | 2019-07-22 19:23 | NUR ---
HAND-OFF: Report given to KELI SARAVIA. Pt is awake and stable.
--- NOTE | 2019-07-22 19:53 | NUR ---
NURSE NOTES: received pt in bed in semi-salmon's position in room air. no s/s of acute respiratory distress noted. no c/o chest pain. call light within reach. bed is the lowest position. will continue to provide plan of care.
[2019-07-22 20:00] VITALS: BP 144/94
[2019-07-23] VITALS: BP 135/94
[2019-07-23] MEDS: Albuterol/Ipratropium 3ml neb HHN PRN ×2 (00:02→09:52)
[2019-07-23 04:00] VITALS: BP 134/94
[2019-07-23] MEDS: Solu-MEDROL 125mg Inj IV SCH ×2 (05:29→12:04)
--- NOTE | 2019-07-23 06:35 | Consultation ---
History of Present Illness General Chief Complaint: Dyspnea/Respdistress Present Illness Allergies: Coded Allergies: ACETAMINOPHEN (Verified Allergy, Unknown, 07/20/19) HYDROCODONE (Verified Allergy, Unknown, 07/20/19) Medication History Miscellaneous Medications Unable to Obtain Medications (Unable To Obtain Meds), (Reported) Patient History Healthcare decision maker Resuscitation status Full Code Advanced Directive on File Physical Exam Last 24 Hour Vital Signs Date Time Temp Pulse Resp B/P (MAP) Pulse Ox O2 Delivery O2 Flow Rate FiO2 07/23/19 04:00 97.0 94 20 134/94 (107) 96 07/23/19 00:05 52 18 100 Room Air 21 47 18 99 07/23/19 00:00 97.1 76 18 135/94 (108) 98 07/22/19 21:00 Room Air 07/22/19 20:00 72 20 95 Room Air 21 07/22/19 20:00 97.3 79 18 144/94 (111) 98 07/22/19 16:00 98.0 70 17 135/83 (100) 99 07/22/19 14:31 97.8 07/22/19 13:50 78 18 100 Room Air 21 76 18 97 07/22/19 12:00 97.8 77 16 139/90 (106) 98 07/22/19 09:34 160/97 07/22/19 09:34 78 160/97 07/22/19 09:34 160/97 07/22/19 09:05 78 18 100 Room Air 21 74 18 97 07/22/19 09:00 Room Air 07/22/19 08:00 97.8 82 17 160/97 (118) 100 Intake and Output 07/22/19 07/23/19 18:59 06:59 Intake Total 1282.5 ml Balance 1282.5 ml Intake Oral 1200 ml IV Total 82.5 ml # Voids 2 1 Laboratory Tests Test 07/23/19 06:05 White Blood Count Pending Red Blood Count Pending Hemoglobin Pending Hematocrit Pending Mean Corpuscular Volume Pending Mean Corpuscular Hemoglobin Pending Mean Corpuscular Hemoglobin Concent Pending Red Cell Distribution Width Pending Platelet Count Pending Mean Platelet Volume Pending Neutrophils (%) (Auto) Pending Lymphocytes (%) (Auto) Pending Monocytes (%) (Auto) Pending Eosinophils (%) (Auto) Pending Basophils (%) (Auto) Pending Sodium Level Pending Potassium Level Pending Chloride Level Pending Carbon Dioxide Level Pending Blood Urea Nitrogen Pending Creatinine Pending Estimat Glomerular Filtration Rate Pending Glucose Level Pending Calcium Level Pending Height (Feet): 5 Height (Inches): 5.00 Weight (Pounds): 220 Medications Current Medications Medications (Trade) Dose Ordered Sig/Sylvie Route PRN Reason Start Time Stop Time Status Last Admin Dose Admin Acetylcysteine (Mucomyst) 200 mg Q6H PRN HHN For Cough 07/21/19 08:45 08/20/19 08:29 07/22/19 13:53 Albuterol/ Ipratropium (Albuterol/ Ipratropium) 3 ml Q4H PRN HHN dyspnea 07/20/19 17:30 07/25/19 17:29 07/23/19 00:02 Azithromycin (Zithromax) 250 mg DAILY ORAL 07/23/19 09:00 07/30/19 08:59 Benazepril HCl (Lotensin) 40 mg DAILY ORAL 07/20/19 18:15 08/19/19 18:14 07/22/19 09:34 Dextrose (Dextrose 50%) 25 ml Q30M PRN IV Hypoglycemia 07/20/19 17:30 08/19/19 17:29 Dextrose (Dextrose 50%) 50 ml Q30M PRN IV Hypoglycemia 07/20/19 17:30 08/19/19 17:29 Diltiazem HCl (Cardizem CD) 180 mg DAILY ORAL 07/23/19 09:00 08/22/19 08:59 Heparin Sodium (Porcine) (Heparin 5000 units/ml) 5,000 units EVERY 12 HOURS SUBQ 07/20/19 21:00 08/19/19 20:59 07/22/19 20:54 Ibuprofen (Advil) 400 mg Q6H PRN ORAL For Pain 07/20/19 20:15 08/19/19 20:14 07/22/19 20:59 Lorazepam (Ativan 2mg/ml 1ml) 0.5 mg Q4H PRN IV For Anxiety 07/20/19 17:30 07/27/19 17:29 Methylprednisolone Sodium Succinate (Solu-MEDROL) 60 mg EVERY 6 HOURS IV 07/20/19 18:00 08/19/19 17:59 07/23/19 05:29 Nitroglycerin (Ntg) 0.4 mg Q5M X 3 DOSES PRN SL Prn Chest Pain 07/20/19 17:30 08/19/19 17:29 07/20/19 23:52 Ondansetron HCl (Zofran) 4 mg Q6H PRN IVP Nausea & Vomiting 07/20/19 17:30 08/19/19 17:29 Promethazine HCl/ Codeine (Phenergan with Codeine) 5 ml Q6H PRN ORAL cough 07/20/19 17:30 08/19/19 17:29 Temazepam (Restoril) 15 mg HSPRN PRN ORAL Insomnia 07/20/19 17:30 07/27/19 17:29 07/22/19 00:20 Theophylline (Bam-Dur) 100 mg EVERY 12 HOURS ORAL 07/20/19 21:00 08/19/19 20:59 07/22/19 20:52 Assessment/Plan Assessment/Plan: Hematology Consultation Chief Complaint: Dyspnea/Respdistress RFC: leukocytosis DOS: 07/23/19 ID 49-year-old female with history of asthma, hypertension and anxiety who presents with difficulty breathing for 1 day duration. She had a lot of difficulty bringing this morning. She did not take any medications today. She states her symptoms started after using [facility] yesterday for "generalized not feeling well". She received the pneumonia vaccination within the last 2 years. However she did not get her influenza vaccination this year. She denies any known fevers but notes subjective fever symptoms. She has an associated dry cough. She denies any chest pain. She has a history of hypertension where she takes her medications as needed for high blood pressure. She has not taken any medications for the last several weeks as her blood pressures been within normal limits. Patient has no prior smoking history. Wbc is 24k on admission, has been started on steriods. Allergies: ACETAMINOPHEN (Verified Allergy, Unknown, 07/20/19) HYDROCODONE (Verified Allergy, Unknown, 07/20/19) Patient History Last Menstrual Period: hysterectomy 08/2018 Now: No Nursing Documentation-PMH Hx Asthma: Yes History Of Psychiatric Problem: Yes - Anxiety Review of Systems Constitutional: Reports: fever; Denies: chills Respiratory: Reports: cough, shortness of breath Cardiovascular: Denies: chest pain, palpitations Gastrointestinal: Denies: diarrhea, vomiting Genitourinary: Denies: hematuria, pain Musculoskeletal: Denies: joint swelling Skin: Denies: rash, lesions Neurological: Denies: headache, dizziness Physical Exam General: well appearing, no apparent distress, nt Resp: no accessory muscle use, respiratory distress - Mild, rhonchi, wheezing - Bilateral worse expiratory Cardiovascular: regular rate, rhythm GI: non tender, soft, no mass, non-distended Msk: Limited range of motion of right hip. Pain with movement of right hip. Neurologic: grossly normal Skin: warm/dry, normal turgor Labs: noted Imaging: noted Assessment and Recs: # Leukocytosis - likely related to steriods in this case, was started on them for copd exacerbation --> continue on steriods, Zosyn-->azithro --> per pulm --> peripheral smear to be reviewed --> prelim no blasts noted in smear # Dvt of the lower ext history --> reobtain duplex since not done --> on hep sq dosing ppx # COPD/asthma exacerbation --> CXR: No evidence of acute pulmonary disease. --> influenza sc neg --> steriods started # HTN --> sbp goal <150 --> dilt # s/p cholecystectomy # anxiety disorder # s/p hysterectomy 08/2018 # back surgeries x3 DW Rn and appreciate consultation. Isac Harrison MD Jul 23, 2019 06:35
[2019-07-23 06:36] LABS: HEMATOCRIT 44.2 % (37.0-47.0); HEMOGLOBIN 14.5 G/DL (12.0-16.0); MEAN CORPUSCULAR VOLUME 86 FL (80-99); PLATELET COUNT 228 K/UL (150-450); RED BLOOD COUNT 5.12 M/UL (4.20-5.40); RED CELL DISTRIBUTION WIDTH 13.6 % (11.6-14.8); WHITE BLOOD COUNT 20.6 K/UL (4.8-10.8)
[2019-07-23 07:07] LABS: ANION GAP 10 mmol/L (5-15); BLOOD UREA NITROGEN 19 mg/dL (7-18); CARBON DIOXIDE 26 MMOL/L (21-32); CHLORIDE 106 MMOL/L (98-107); CREATININE 0.9 MG/DL (0.55-1.30); POTASSIUM 4.2 MMOL/L (3.5-5.1); SODIUM 142 MMOL/L (136-145)
[2019-07-23 08:00] VITALS: BP 146/104
--- NOTE | 2019-07-23 08:03 | NUR ---
HAND-OFF: Report given to Donovan SARAVIA.
--- NOTE | 2019-07-23 08:04 | NUR ---
NURSE NOTES: Report received from Merary SARAVIA. Patient awake alert and orient, sitting in high fowlers position. IV no longer in place in right hand. Communicated with patient that a new one would be placed. Patient denies pain, but requesting breathing treatment. Patient informed of her next scheduled breathing treatment. Bed in lowest position and locked. Call light and personal belongings in reach. Will continue to follow plan of care.
[2019-07-23] MEDS ORDERED: Azithromycin 250mg tab ORAL SCH (09:00)
[2019-07-23] MEDS: dilTIAZem HCl CD 180mg cap ORAL SCH ×3 (09:00→13:36)
[2019-07-23] MEDS: Theophylline ER 100mg ORAL SCH (09:46)
[2019-07-23] MEDS: Heparin 5000 units/ml inj SUBQ SCH (09:48)
[2019-07-23] MEDS: Acetylcysteine 20% Soln 4ml HHN PRN (09:52)
--- NOTE | 2019-07-23 11:24 | NUR ---
RESPIRATORY NOTE: Received pt on trach shiley 6xlt and on vent settings of AC 12 VT 500 Fio2 50% no peep. Pt is awake and alert. Suctioning small yellow pink zepeda thick secretions. Pt is currently weaning to see if patient can be on T- Piece. Pt is weaning on CPAP PS 8. Pt is tolerating well. Will continue to monitor. Alarms are on and audible and ambu bag is at bed side.
[2019-07-23 12:00] VITALS: BP 165/100
--- NOTE | 2019-07-23 12:03 | Pulmonology Progress Note ---
Assessment/Plan Problems: (1) athma exacerbation (2) HTN (hypertension) Assessment/Plan wants to go home respiratory treatment check sputum check labs steroids prescription for inhaler given Subjective Constitutional: Reports: no symptoms HEENT: Repors: no symptoms Respiratory: Reports: no symptoms Cardiovascular: Reports: no symptoms Allergies: Coded Allergies: ACETAMINOPHEN (Verified Allergy, Unknown, 07/20/19) HYDROCODONE (Verified Allergy, Unknown, 07/20/19) Objective Last 24 Hour Vital Signs Date Time Temp Pulse Resp B/P (MAP) Pulse Ox O2 Delivery O2 Flow Rate FiO2 07/23/19 11:34 40 20 99 Room Air 21 07/23/19 10:02 51 20 100 Room Air 21 49 20 99 07/23/19 09:47 161/106 07/23/19 09:00 Room Air 07/23/19 08:00 97.7 74 18 146/104 (118) 100 07/23/19 04:00 97.0 94 20 134/94 (107) 96 07/23/19 00:05 52 18 100 Room Air 21 47 18 99 07/23/19 00:00 97.1 76 18 135/94 (108) 98 07/22/19 21:00 Room Air 07/22/19 20:00 72 20 95 Room Air 21 07/22/19 20:00 97.3 79 18 144/94 (111) 98 07/22/19 16:00 98.0 70 17 135/83 (100) 99 07/22/19 14:31 97.8 07/22/19 13:50 78 18 100 Room Air 21 76 18 97 Intake and Output 07/22/19 07/23/19 19:00 07:00 Intake Total 1282.5 ml Balance 1282.5 ml Intake Oral 1200 ml IV Total 82.5 ml # Voids 2 1 General Appearance: WD/WN HEENT: normocephalic, atraumatic Respiratory/Chest: chest wall non-tender, lungs clear, no respiratory distress Abdomen: normal bowel sounds, soft, non tender Genitourinary: normal external genitalia Extremities: no cyanosis 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, abnormal gait Lymphatic: no neck adenopathy Laboratory Tests 07/23/19 06:05: White Blood Count 20.6H, Red Blood Count 5.12, Hemoglobin 14.5, Hematocrit 44.2 , Mean Corpuscular Volume 86, Mean Corpuscular Hemoglobin 28.3, Mean Corpuscular Hemoglobin Concent 32.7, Red Cell Distribution Width 13.6, Platelet Count 228, Mean Platelet Volume 7.3, Neutrophils (%) (Auto) , Lymphocytes (%) ( Auto) , Monocytes (%) (Auto) , Eosinophils (%) (Auto) , Basophils (%) (Auto) , Differential Total Cells Counted 100, Neutrophils % (Manual) 94H, Lymphocytes % (Manual) 2L, Monocytes % (Manual) 3, Eosinophils % (Manual) 0, Basophils % ( Manual) 0, Band Neutrophils 1, Platelet Estimate Adequate, Platelet Morphology Normal, Red Blood Cell Morphology Normal, Sodium Level 142, Potassium Level 4.2 , Chloride Level 106, Carbon Dioxide Level 26, Anion Gap 10, Blood Urea Nitrogen 19H, Creatinine 0.9, Estimat Glomerular Filtration Rate > 60, Glucose Level 139H, Calcium Level 9.0 Current Medications Medications (Trade) Dose Ordered Sig/Sylvie Route PRN Reason Start Time Stop Time Status Last Admin Dose Admin Acetylcysteine (Mucomyst) 200 mg Q6H PRN HHN For Cough 07/21/19 08:45 08/20/19 08:29 07/23/19 09:52 Albuterol/ Ipratropium (Albuterol/ Ipratropium) 3 ml Q4H PRN HHN dyspnea 07/20/19 17:30 07/25/19 17:29 07/23/19 09:52 Azithromycin (Zithromax) 250 mg DAILY ORAL 07/23/19 09:00 07/30/19 08:59 07/23/19 09:45 Benazepril HCl (Lotensin) 40 mg DAILY ORAL 07/20/19 18:15 08/19/19 18:14 07/23/19 09:47 Dextrose (Dextrose 50%) 25 ml Q30M PRN IV Hypoglycemia 07/20/19 17:30 08/19/19 17:29 Dextrose (Dextrose 50%) 50 ml Q30M PRN IV Hypoglycemia 07/20/19 17:30 08/19/19 17:29 Diltiazem HCl (Cardizem CD) 180 mg DAILY ORAL 07/23/19 09:00 08/22/19 08:59 Heparin Sodium (Porcine) (Heparin 5000 units/ml) 5,000 units EVERY 12 HOURS SUBQ 07/20/19 21:00 08/19/19 20:59 07/23/19 09:48 Ibuprofen (Advil) 400 mg Q6H PRN ORAL For Pain 07/20/19 20:15 08/19/19 20:14 07/22/19 20:59 Lorazepam (Ativan 2mg/ml 1ml) 0.5 mg Q4H PRN IV For Anxiety 07/20/19 17:30 07/27/19 17:29 Methylprednisolone Sodium Succinate (Solu-MEDROL) 60 mg EVERY 6 HOURS IV 07/20/19 18:00 08/19/19 17:59 07/23/19 05:29 Nitroglycerin (Ntg) 0.4 mg Q5M X 3 DOSES PRN SL Prn Chest Pain 07/20/19 17:30 08/19/19 17:29 07/20/19 23:52 Ondansetron HCl (Zofran) 4 mg Q6H PRN IVP Nausea & Vomiting 07/20/19 17:30 08/19/19 17:29 Promethazine HCl/ Codeine (Phenergan with Codeine) 5 ml Q6H PRN ORAL cough 07/20/19 17:30 08/19/19 17:29 Temazepam (Restoril) 15 mg HSPRN PRN ORAL Insomnia 07/20/19 17:30 07/27/19 17:29 07/22/19 00:20 Theophylline (Bam-Dur) 100 mg EVERY 12 HOURS ORAL 07/20/19 21:00 08/19/19 20:59 07/23/19 09:46 Nicolas Cardoza MD Jul 23, 2019 12:03
[2019-07-23] MEDS ORDERED: MEDROL DOSEPAK4 MG ORAL (12:05)
[2019-07-23] MEDS ORDERED: ALBUTEROL SULF8.5 GM INH (12:05)
[2019-07-23 13:36] VITALS: BP 150/103
--- NOTE | 2019-07-23 13:41 | NUR ---
NURSE NOTES: Patient reported head pain 8/10, however requested to try acetaminophen first. 400 mg of PRN acetaminophen given. Will continue to monitor and reassess patient.
--- NOTE | 2019-07-23 14:22 | NUR ---
NURSE NOTES: Patient reports pain of 4/10 after receiving PRN acetaminophen. Will continue to follow process plan.
--- NOTE | 2019-07-23 14:46 | NUR ---
CASE MANAGEMENT: INITIAL REVIEW 49YR OLD FEMALE FROM HOME CC: DYSPNEA / RESP. DISTRESS SI: ASTHMA EXACERBATION 98.3 95 19 148/111 94% ON RA IS: CATAPRES PO X1 IV SOLU-MEDROL X1 PROVENTIL HHN X2 ATROVENT HHN X1 MUCOMYST HHN X1 \: 4E MED/SURG DCP: RETURN HOME WHEN MEDICALLY CLEARED PLAN: CASE MANAGEMENT: REVIEW 07/21/19 SI: ASTHMA EXACERBATION 98.1 91 18 152/106 93% ON RA IS: ZITHROMAX PO QD IV SOLU-MEDROL Q6HR HEPARIN SQ BID LOTENSIN PO QD CAPOTEN PO Q8HR/PRN THE-DUR PO BID CARDIZEM CD PO QD ALBUTEROL HHNQ4/PRN MUCOMYST HHNQ6/PRN \: 4E MED/SURG DCP: RETURN HOME WHEN MEDICALLY CLEARED CASE MANAGEMENT: REVIEW 07/22/19 SI: ASTHMA EXACERBATION. HTN . 97.8 82 17 160/97 100% ON RA WBC 23.5 BG 200 IS: ZITHROMAX PO QD IV SOLU-MEDROL Q6HR HEPARIN SQ BID LOTENSIN PO QD CAPOTEN PO Q8HR/PRN THE-DUR PO BID CARDIZEM CD PO QD ALBUTEROL HHNQ4/PRN MUCOMYST HHNQ6/PRN \: 4E MED/SURG DCP: RETURN HOME WHEN MEDICALLY CLEARED
--- NOTE | 2019-07-23 14:53 | NUR ---
NURSE NOTES: Discharge orders received from Doctor Dilan. Patient informed. Patient stated that she can not get a ride home until approximately 1900.
--- NOTE | 2019-07-23 14:53 | General Progress Note ---
Assessment/Plan Problem List: (1) HTN (hypertension) ICD Codes: I10 - Essential (primary) hypertension SNOMED: 60269371 (2) Dyspnea ICD Codes: R06.00 - Dyspnea, unspecified SNOMED: 186450517 (3) athma exacerbation Status: stable, progressing Assessment/Plan: oe pulm tx bp control dc if clear by pulm Subjective Constitutional: Reports: weakness Allergies: Coded Allergies: ACETAMINOPHEN (Verified Allergy, Unknown, 07/20/19) HYDROCODONE (Verified Allergy, Unknown, 07/20/19) All Systems: reviewed and negative except above Subjective calm Objective Last 24 Hour Vital Signs Date Time Temp Pulse Resp B/P (MAP) Pulse Ox O2 Delivery O2 Flow Rate FiO2 07/23/19 13:36 92 150/103 07/23/19 12:00 97.1 70 20 165/100 (121) 100 07/23/19 11:34 40 20 99 Room Air 21 07/23/19 10:02 51 20 100 Room Air 21 49 20 99 07/23/19 09:47 161/106 07/23/19 09:00 Room Air 07/23/19 08:00 97.7 74 18 146/104 (118) 100 07/23/19 04:00 97.0 94 20 134/94 (107) 96 07/23/19 00:05 52 18 100 Room Air 21 47 18 99 07/23/19 00:00 97.1 76 18 135/94 (108) 98 07/22/19 21:00 Room Air 07/22/19 20:00 72 20 95 Room Air 21 07/22/19 20:00 97.3 79 18 144/94 (111) 98 07/22/19 16:00 98.0 70 17 135/83 (100) 99 Intake and Output 07/22/19 07/23/19 19:00 07:00 Intake Total 1282.5 ml Balance 1282.5 ml Intake Oral 1200 ml IV Total 82.5 ml # Voids 2 1 Laboratory Tests 07/23/19 06:05: White Blood Count 20.6H, Red Blood Count 5.12, Hemoglobin 14.5, Hematocrit 44.2 , Mean Corpuscular Volume 86, Mean Corpuscular Hemoglobin 28.3, Mean Corpuscular Hemoglobin Concent 32.7, Red Cell Distribution Width 13.6, Platelet Count 228, Mean Platelet Volume 7.3, Neutrophils (%) (Auto) , Lymphocytes (%) ( Auto) , Monocytes (%) (Auto) , Eosinophils (%) (Auto) , Basophils (%) (Auto) , Differential Total Cells Counted 100, Neutrophils % (Manual) 94H, Lymphocytes % (Manual) 2L, Monocytes % (Manual) 3, Eosinophils % (Manual) 0, Basophils % ( Manual) 0, Band Neutrophils 1, Platelet Estimate Adequate, Platelet Morphology Normal, Red Blood Cell Morphology Normal, Sodium Level 142, Potassium Level 4.2 , Chloride Level 106, Carbon Dioxide Level 26, Anion Gap 10, Blood Urea Nitrogen 19H, Creatinine 0.9, Estimat Glomerular Filtration Rate > 60, Glucose Level 139H, Calcium Level 9.0 Height (Feet): 5 Height (Inches): 5.00 Weight (Pounds): 220 General Appearance: alert EENT: normal ENT inspection Neck: normal alignment Cardiovascular: normal peripheral pulses, normal rate, regular rhythm Respiratory/Chest: chest wall non-tender, lungs clear, normal breath sounds Abdomen: normal bowel sounds, non tender, soft Extremities: normal inspection Edema: no edema noted Arm (L), no edema noted Arm (R), no edema noted Leg (L), no edema noted Leg (R), no edema noted Pedal (L), no edema noted Pedal (R), no edema noted Generalized Neurologic: responsive, motor weakness Skin: normal pigmentation, warm/dry Ramon Kong DO Jul 23, 2019 14:53
--- NOTE | 2019-07-23 15:03 | Infectious Diseases Prog Note ---
Assessment/Plan Assessment/Plan Abx: Zosyn 07/20- Assessment: COPD/asthma exacerbation -CXR: No evidence of acute pulmonary disease. -influenza sc neg Afebrile Leukocytosis (not present on admission, now on high dose steroids); improving HTN DVT s/p cholecystectomy anxiety disorder s/p hysterectomy 08/2018 back surgeries x3 Plan: -Cont PO Azithromycin #2/5 for COPD exacerbation -07/22 SP Zosyn #2 -f/u cx -Monitor CBC/CMP, temperatures Thank you for this consultation. Will continue to follow along with you. Discussed with RN Subjective Allergies: Coded Allergies: ACETAMINOPHEN (Verified Allergy, Unknown, 07/20/19) HYDROCODONE (Verified Allergy, Unknown, 07/20/19) Subjective afebrile wbc improving Objective Vital Signs Last 24 Hour Vital Signs Date Time Temp Pulse Resp B/P (MAP) Pulse Ox O2 Delivery O2 Flow Rate FiO2 07/23/19 13:36 92 150/103 07/23/19 12:00 97.1 70 20 165/100 (121) 100 07/23/19 11:34 40 20 99 Room Air 21 07/23/19 10:02 51 20 100 Room Air 21 49 20 99 07/23/19 09:47 161/106 07/23/19 09:00 Room Air 07/23/19 08:00 97.7 74 18 146/104 (118) 100 07/23/19 04:00 97.0 94 20 134/94 (107) 96 07/23/19 00:05 52 18 100 Room Air 21 47 18 99 07/23/19 00:00 97.1 76 18 135/94 (108) 98 07/22/19 21:00 Room Air 07/22/19 20:00 72 20 95 Room Air 21 07/22/19 20:00 97.3 79 18 144/94 (111) 98 07/22/19 16:00 98.0 70 17 135/83 (100) 99 Height (Feet): 5 Height (Inches): 5.00 Weight (Pounds): 220 Objective GENERAL: Calm in bed, oriented x3, slight short of breath. CARDIOVASCULAR: No murmurs. LUNGS: Poor exchange, wheezing bilaterally. ABDOMEN: Bowel sounds positive. Nontender. Nondistended. EXTREMITIES: Show no cyanosis, clubbing, or edema. NEUROLOGIC: The patient moves all extremities, slightly weak Laboratory Tests Test 07/23/19 06:05 White Blood Count 20.6 K/UL (4.8-10.8) H Red Blood Count 5.12 M/UL (4.20-5.40) Hemoglobin 14.5 G/DL (12.0-16.0) Hematocrit 44.2 % (37.0-47.0) Mean Corpuscular Volume 86 FL (80-99) Mean Corpuscular Hemoglobin 28.3 PG (27.0-31.0) Mean Corpuscular Hemoglobin Concent 32.7 G/DL (32.0-36.0) Red Cell Distribution Width 13.6 % (11.6-14.8) Platelet Count 228 K/UL (150-450) Mean Platelet Volume 7.3 FL (6.5-10.1) Neutrophils (%) (Auto) % (45.0-75.0) Lymphocytes (%) (Auto) % (20.0-45.0) Monocytes (%) (Auto) % (1.0-10.0) Eosinophils (%) (Auto) % (0.0-3.0) Basophils (%) (Auto) % (0.0-2.0) Differential Total Cells Counted 100 Neutrophils % (Manual) 94 % (45-75) H Lymphocytes % (Manual) 2 % (20-45) L Monocytes % (Manual) 3 % (1-10) Eosinophils % (Manual) 0 % (0-3) Basophils % (Manual) 0 % (0-2) Band Neutrophils 1 % (0-8) Platelet Estimate Adequate Platelet Morphology Normal Red Blood Cell Morphology Normal Sodium Level 142 MMOL/L (136-145) Potassium Level 4.2 MMOL/L (3.5-5.1) Chloride Level 106 MMOL/L (98-107) Carbon Dioxide Level 26 MMOL/L (21-32) Anion Gap 10 mmol/L (5-15) Blood Urea Nitrogen 19 mg/dL (7-18) H Creatinine 0.9 MG/DL (0.55-1.30) Estimat Glomerular Filtration Rate > 60 mL/min (>60) Glucose Level 139 MG/DL (74-106) H Calcium Level 9.0 MG/DL (8.5-10.1) Current Medications Medications (Trade) Dose Ordered Sig/Sylvie Route PRN Reason Start Time Stop Time Status Last Admin Dose Admin Acetylcysteine (Mucomyst) 200 mg Q6H PRN HHN For Cough 07/21/19 08:45 08/20/19 08:29 07/23/19 09:52 Albuterol/ Ipratropium (Albuterol/ Ipratropium) 3 ml Q4H PRN HHN dyspnea 07/20/19 17:30 07/25/19 17:29 07/23/19 09:52 Azithromycin (Zithromax) 250 mg DAILY ORAL 07/23/19 09:00 07/30/19 08:59 07/23/19 09:45 Benazepril HCl (Lotensin) 40 mg DAILY ORAL 07/20/19 18:15 08/19/19 18:14 07/23/19 09:47 Dextrose (Dextrose 50%) 25 ml Q30M PRN IV Hypoglycemia 07/20/19 17:30 08/19/19 17:29 Dextrose (Dextrose 50%) 50 ml Q30M PRN IV Hypoglycemia 07/20/19 17:30 08/19/19 17:29 Diltiazem HCl (Cardizem CD) 180 mg DAILY ORAL 07/23/19 09:00 08/22/19 08:59 07/23/19 13:36 Heparin Sodium (Porcine) (Heparin 5000 units/ml) 5,000 units EVERY 12 HOURS SUBQ 07/20/19 21:00 08/19/19 20:59 07/23/19 09:48 Ibuprofen (Advil) 400 mg Q6H PRN ORAL For Pain 07/20/19 20:15 08/19/19 20:14 07/23/19 13:41 Lorazepam (Ativan 2mg/ml 1ml) 0.5 mg Q4H PRN IV For Anxiety 07/20/19 17:30 07/27/19 17:29 Methylprednisolone Sodium Succinate (Solu-MEDROL) 60 mg EVERY 6 HOURS IV 07/20/19 18:00 08/19/19 17:59 07/23/19 12:04 Nitroglycerin (Ntg) 0.4 mg Q5M X 3 DOSES PRN SL Prn Chest Pain 07/20/19 17:30 08/19/19 17:29 07/20/19 23:52 Ondansetron HCl (Zofran) 4 mg Q6H PRN IVP Nausea & Vomiting 07/20/19 17:30 08/19/19 17:29 Promethazine HCl/ Codeine (Phenergan with Codeine) 5 ml Q6H PRN ORAL cough 07/20/19 17:30 08/19/19 17:29 Temazepam (Restoril) 15 mg HSPRN PRN ORAL Insomnia 07/20/19 17:30 07/27/19 17:29 07/22/19 00:20 Theophylline (Bam-Dur) 100 mg EVERY 12 HOURS ORAL 07/20/19 21:00 08/19/19 20:59 07/23/19 09:46 Evi Mishra M.D. Jul 23, 2019 15:03
--- NOTE | 2019-07-23 15:19 | NUR ---
RECEIVED A FAX FROM [facility] 07/23/2019 @0309 ABOUT DENIAL SPOKE TO LEANDRA FROM [facility] SCHEDULED A PEER TO PEER REVIEW FOR LOLA MACKAY BETWEEN 10AM-1:30PM WILL F/U IN AM
--- NOTE | 2019-07-23 15:52 | NUR ---
*-* INSURANCE *-* ALL AVAILABLE CLINICALS HAVE BEEN FAXED TO: [facility] REF# [id number] #[phone] FAX#[phone]
[2019-07-23] MEDS ORDERED: ZITHROMAX250 MG ORAL (16:59)
[2019-07-23] MEDS ORDERED: NS 275ml ONE (17:50)
--- NOTE | 2019-07-23 17:50 | NUR ---
NURSE NOTES: Patient discharged to home accompanied by her friend in stable condition. prior to discharge, patient's V/S stable. Denied SOB or chest tightness. Discharge instruction given to the patient about medrol pack and azithromycin. Instructed patient to follow direction and complete antibiotics even though she feels better. IV and ID were removed. All belongings accounted for. No missing items. Patient said she does not need blood pressure meds since she has blood pressure meds @ home. Staff escorted patient to the car.
--- NOTE | 2019-07-24 09:55 | Discharge Summary ---
Discharge Summary Discharge Summary _ DATE OF ADMISSION: 07/20/2019 DATE OF DISCHARGE: 07/23/2019 DISCHARGED BY: Dr. Kong REASON FOR ADMISSION: 49 years old female with past medical history of asthma, hypertension and anxiety disorder, presented with difficulty breathing for 1 day. Patient reported that symptoms started after using [place] for not feeling well. Patient received pneumonia vaccine within the last 2 years. Patient did not get influenza vaccine this year. She denied fevers, but reported subjective chills. Patient reported associated dry cough. No hemoptysis. No chest pain. Upon evaluation blood pressure was 147/111. Pulse oximetry was 94% on room air , patient was afebrile. Laboratory work-up revealed no leukocytosis , stable hemoglobin , hematocrit and platelet count. Stable electrolytes and renal parameters. Glucose 95. Troponin negative. EKG revealed sinus rhythm with mild left atrial enlargement. Albumin 3.7. Chest x-ray demonstrated no evidence of acute pulmonary disease. In emergency department patient had multiple episodes of wheezing. Patient received 5 nebulizing treatment with bronchodilator , somewhat improved but still remained short of breath. Patient received loading dose of Solumedrol and Mucomyst and asubsequently admitted for further management. CONSULTANTS: pile driver operator helper Dr. Rogel, pulmonary Dr. Cardoza ID specialist Dr. Mishra hydrate thickener operator/oncologist Dr. Harrison HOSPITAL COURSE: Patient admitted to medical surgical floor. Supplemental oxygen provided and titrated to keep pulse oximetry above 92%. Patient started on empiric antibiotics and IV steroids with gradual tapering. Bronchodilator therapy provided via handheld nebulizer as needed. Trial of theophylline instituted. Patient also started on Mucomyst. Influenza swab test was negative. Venous duplex bilateral lower extremity revealed no evidence of acute DVT. DVT prophylaxis provided. Patient developed leukocytosis the next day, likely due to steroids. Steroids tapered. Chest x-ray, as mentioned above, revealed no acute cardiopulmonary pathology. Patient remained afebrile. Per ID specialist, leukocytosis was likely due to steroids. No evidence of infection. Patient remained afebrile. Leukocytosis trending down. Alternative [employer] Technician reviewed peripheral smear due to leukocytosis, no abnormal findings noted. Upon discharge IV antibiotic changed to oral to complete the course at home. Blood pressure was managed with CEDRICK inhibitor and calcium channel yoan. Doses were uptitrated as per pile driver operator helper to keep blood pressure under control. Blood pressure improved. EKG was unremarkable. Patient clinically stabilized and was ready for discharge. Prior to discharge pulse oximetry stable on room air, no wheezing, no shortness of breath. Patient was discharged on Medrol Dosepak and antibiotic to complete the course at home. FINAL DIAGNOSES: Acute asthma exacerbation Leukocytosis, likely due to steroids - improving Hypertension History of DVT DISCHARGE MEDICATIONS: See Medication Reconciliation list. DISCHARGE INSTRUCTIONS: Patient was discharged home. Follow-up with a primary care provider in 1 week. I have been assigned to dictate discharge summary for this account. I was not involved in the patient's management. Zully Hawkins NP Jul 24, 2019 09:55
--- NOTE | 2019-07-24 12:30 | Diagnostic Imaging Report ---
APPROVED REPORT CPT Code: 14043 Present Symptoms Comments: SCREENING Imaging reveals a patent deep venous system bilaterally. There is no evidence of thrombus within the common femoral, superficial femoral, popliteal or tibial segments. The greater saphenous veins are within normal limits. Doppler indicates normal spontaneous flow within these segments.
--- NOTE | 2019-07-25 12:51 | Cardiology Report ---
APPROVED REPORT EKG Measurement Heart [id number] Normal sinus rhythm Possible Left atrial enlargement Borderline ECG
== END 2019-07-23 17:51 | disposition home or self-care (01) | DRG 202 ==
LOC: EMR 11:10 → EDBEDREQ 14:00 → 4E 14:07
DX: J45.901 Unspecified asthma with (acute) exacerbation (principal); J44.1 Chronic obstructive pulmonary disease with (acute) exacerbation; I10 Essential (primary) hypertension; D72.829 Elevated white blood cell count, unspecified; F41.9 Anxiety disorder, unspecified; Z90.49 Acquired absence of other specified parts of digestive tract; Z90.710 Acquired absence of both cervix and uterus; Z86.718 Personal history of other venous thrombosis and embolism
CPT/HCPCS: 36415; 71046; 80048; 80053; 81025; 84484; 85007; 85025; 85060; 86710; 93005; 93970; 94640; 94664; 96374; 99285; J7620